=== PATIENT | male | born 1995 | race Caucasian/White ===

== ENCOUNTER 2016-07-26 11:45 | Emergency (ER) | payer MEDICAID ==
[2016-07-26 12:05] VITALS: BP 125/76
--- NOTE | 2016-07-26 12:47 | ERNOTE ---
Medical Problem HPI - General Chief Complaint: General Assessment Time Seen by Provider: 07/26/16 12:16 Source: patient - Immun/Allergies/Home Medications Immunizations: IMMUNIZATION HX Immunizations Up to Date Yes History of Influenza Vaccine No Hx Pneumococcal Vaccination No Allergies/Adverse Reactions: Allergies No Known Allergies Allergy (Unverified 07/26/16 12:05) Home Medications: HOME MEDICATIONS Ibuprofen [Motrin] 600 mg PO TID PRN #30 tab 07/26/16 [Last Taken Unknown] - History of Present History Narrative: right sided chest wall pain. pain has had this pain since he woke up this am. No fevers, chills, cough or congestion. No history of trauma. chest wall pain is worse with deep inspiration. Review of Systems - Review of Systems Constitutional: Present: no symptoms reported EYE: Present: no symptoms reported ENT: Present: no symptoms reported Respiratory: Present: See HPI Cardiology: Present: See HPI - Patient's Past Medical History Patient History - Medical: No pertinent hx Patient History - Cardiac/Respiratory: Asthma Patient History - Cancer: No Hx of Cancer Patient History - Surgical Procedures: No surgical history Patient History - Other: None - Social History Living Situations: home Psych History: No pertinent hx Smoking Status: Current every day smoker - Immunizations Immunizations Up to Date: Yes Hx Pneumococcal Vaccination: No History of Influenza Vaccine: No Physical Exam - Physical Exam General Appearance: Present: wd/wn, alert, no apparent distress Ears, Nose, Throat: Present: normal ENT inspection, normal except -, dry mucous membranes Neck: Present: normal inspection Respiratory: Present: no respiratory distress, no accessory muscle use, chest nontender, lungs clear, chest tenderness - tender upon palpation of the ribs of right side in anterior axillary line Cardiovascular/Chest: Present: regular rate, rhythm, no murmur, normal peripheral pulses ED Progress - Vital Signs Patient's Vital Signs:: I have reviewed the patient's vital signs. Vital Signs: Vital Signs 07/26/16 12:01 Temperature 36.8 C Pulse Rate 87 Respiratory 16 Rate Blood Pressure 125/76 O2 Sat by Pulse 97 Oximetry - X-Ray X-Ray #1 X-Ray: chest - Progress/Reassessment Chief Complaint: General Assessment Plan - Plan Plan: pt appears to have costochondritis and costal pain on the right side Departure - Departure Clinical Impression: Costochondritis, acute Disposition: Home self-care Condition: Good Instructions: Costochondritis, [id number] Prescriptions: Ibuprofen [Motrin] 600 mg PO TID PRN #30 tab PRN Reason: Pain
[2016-07-26] MEDS ORDERED: IBUPROFEN 400 MG TABLET PO ONE (12:48)
--- OUTSIDE RECORDS SUMMARY | 2016-07-26 12:51 | XMS REPORT | CCD ---
:1995 Author Name MONROE VALERA Address [address] [facility] Unavailable [place], [place] [id number] Care Team Providers Name Role Phone MICHELA OVALLES DO Attending Physician Unavailable MICHELA OVALLES DO Er Physician 1 Unavailable KIMMY Robles Registered Nurse Unavailable Vital Signs Vital Sign Value Unit Height 72 in Weight Measured 214 lbs BMI (Body Mass Index) 29.02 kg/m^2 BSA (Body Surface Area) 2.22 m^2 Allergies Allergy Code Allergy Type Reaction Status ASA (aspirin) 0 Drug allergy (disorder) Active Procedures Procedure Code Procedure Type Date INJECT INFUSE NEC 9929 ICD-9 CM, Volume 3 05/02/2013 History of Immunizations Unknown. Problems Problem Code Start Date Resolved Date Status Periapical abscess without sinus 219663100 05/02/2013 Active Results Unknown. Medications Unknown. Medications Administered Unknown. Encounters Encounter Diagnosis Diagnosis Code Start Date PERIAPICAL ABSCESS 5225 05/02/2013 Social History Smoking Status Code Start Date End Date Current every day smoker [id number] Patient Decision Aids Unknown. Instructions You were admitted to [facility] on 05/02/2013 with a principle diagnosis of PERIAPICAL ABSCESS. You had the following procedures done:INJECT INFUSE NEC You were discharged from [facility] on 05/02/2013. Should you have any questions prior to discharge, please contact a member of your healthcare team. If you have left the hospital and have any questions, please contact your primary care physician. Chief Complaint and Reason For Visit Unknown. Function Status Unknown. Plan of Care Unknown. Referral/Transition of Care Unknown.
--- OUTSIDE RECORDS SUMMARY | 2016-07-26 12:51 | XMS REPORT | Continuity of Care Document ---
:1995 Author Organization [facility] ([facility]) Address [address] [place] [address] Phone [phone] Care Team Providers Name Role Phone José Antnoio Fry Primary Care Provider [phone] Source Comments This disclosure is being made pursuant to the Care Everywhere program, applicable federal and state laws, and may not contain all informaitonavailable regarding this patient.[facility] ([facility]) Active Allergies and Adverse Reactions Allergen Noted Date Severity Reactions Comments Aspirin 05/02/2013 Urticaria (Hives) Current Medications Prescription Sig. Disp. Refills Start Date End Date Status traZODone 50 mg tablet Take 1 Tab by mouth 30 Tab 0 05/01/2011 Active at bedtime. Indications: Insomnia citalopram 20 mg tablet Take 1.5 Tabs by 45 Tab 1 05/01/2011 Active mouth daily. Indications: Depression ibuprofen 800 mg tablet Take 800 mg by mouth Active every 8 hours as needed. clindamycin 150 mg Take 300 mg by mouth Active capsule 4 times daily. acetaminophen-codeine Take 1 Tab by mouth Active 300-30 mg per tablet every 6 hours as needed. Active Problems Problem Noted Date Suicidal behavior 04/28/2011 Social History Tobacco Use Types Packs/Day Years Used Date Current Every Day Smoker 0.25 Smokeless Tobacco: Never Used Alcohol Use Drinks/Week oz/Week Comments No Last Filed Vital Signs Vital Sign Reading Time Taken Blood Pressure 127/69 05/01/2011 10:00 AM ENGINEERING COORDINATOR Pulse 74 05/02/2013 8:07 PM ENGINEERING COORDINATOR Temperature 37.1 C (98.8 F) 05/02/2013 8:07 PM ENGINEERING COORDINATOR Respiratory Rate 18 05/02/2013 8:07 PM ENGINEERING COORDINATOR Height 1.75 m (5' 8.9") 04/27/2011 11:11 PM ENGINEERING COORDINATOR Weight 97.07 kg (214 lb) 05/02/2013 8:07 PM ENGINEERING COORDINATOR Body Mass Index - - Oxygen Saturation 98% 05/02/2013 8:07 PM ENGINEERING COORDINATOR Plan of Care Health Maintenance Due Date Last Done Comments Hepatitis B Vaccine (1 of 3 - Primary Series) 1996 HPV Vaccine (1 of 3 - Male 3 Dose Series) 2007 Tdap Vaccine 2007 Meningococcal Vaccine (1 of 1) 2012 Lipid Disorder Screening 2014 MMR Vaccine 2014 Td Vaccine 2014 Varicella Vaccine (1 of 2 - Adult - No Evidence of 2014 Immunity) Pneumococcal Vaccine (1 of 1 - PPSV23) 2015 Influenza Vaccine: Seasonal (#1) 11/23/2015 Results from Last 3 Months Not on file
[2016-07-26] MEDS ORDERED: IBUPROFEN 400 MG TABLET ONE (12:59)
== END 2016-07-26 13:06 | disposition home or self-care (01) ==
LOC: ER 11:45
DX: M94.0 Chondrocostal junction syndrome [Tietze] (principal); F17.210 Nicotine dependence, cigarettes, uncomplicated